=== PATIENT | female | born 1970 | race Caucasian/White ===

== ENCOUNTER 2022-08-05 13:46 | Outpatient (CLI) | payer BC | END 2022-08-05 13:47 | disposition home or self-care (01) | LOC: CSHULT 13:46 | PROVIDERS: ATTEND Family Medicine | DX: R31.29 Other microscopic hematuria (principal) | CPT/HCPCS: 76770 ==

== ENCOUNTER 2024-08-21 08:17 | Emergency (ER) | payer BC ==
[2024-08-21] MEDS ORDERED: Lidocaine 1% w/Epinephrine 1:200K 30 ML VIAL ONE (09:00)
[2024-08-21] MEDS ORDERED: Morphine 10 MG/ML VIAL ONE (09:00)
[2024-08-21] MEDS ORDERED: Midazolam HCl 2 mg/2 ml Vial ONE (12:12)
== END 2024-08-21 13:24 | disposition home or self-care (01) ==
LOC: CSHERS 08:17
DX: N76.4 Abscess of vulva (principal); F17.210 Nicotine dependence, cigarettes, uncomplicated
CPT/HCPCS: 56405; 96372; J2250; J2270

== ENCOUNTER 2025-06-07 08:34 | Outpatient (CLI) | payer BC | END 2025-06-07 08:35 | disposition home or self-care (01) | LOC: CSHCT 08:34 | PROVIDERS: ATTEND Family Medicine | DX: Z12.2 Encounter for screening for malignant neoplasm of respiratory organs (principal); F17.210 Nicotine dependence, cigarettes, uncomplicated | CPT/HCPCS: 71271 ==

== ENCOUNTER 2025-07-13 09:06 | Outpatient (CLI) | payer BC | END 2025-07-13 09:07 | disposition home or self-care (01) | LOC: CSHULT 09:06 | PROVIDERS: ATTEND Family Medicine | DX: R10.32 Left lower quadrant pain (principal); R93.89 Abnormal findings on diagnostic imaging of other specified body structures | CPT/HCPCS: 76856; 93976 ==